=== PATIENT | female | born 1995 | race African-American/Black ===

== ENCOUNTER 2017-08-01 20:26 | Inpatient (IN) | payer OTHER ==
[~2017-08-01] VITALS: Ht 167.6 cm; Wt 54.0 kg
[~2017-08-01 20:26] MED LIST: BIOTIN PO; IRON325 M1 PO; MOTRIN800 MG PO; TUMS500 MG PO; VITAMIN C1000 MG PO
[2017-08-02 09:31] VITALS: BP 134/90
[2017-08-02] MEDS ORDERED: ENDOCET 5-3251 EACH PO (11:22)
[2017-08-02] MEDS ORDERED: IBUPROFEN800 MG PO (11:22)
[2017-08-02 14:59] VITALS: BP 122/79
[2017-08-02 20:22] LABS: BASOPHIL (%) 0.1 % (0-1); EOSINOPHIL (%) 0 % (0-5); HEMATOCRIT 31.6 % (36.0-46.0); IMMATURE GRANULOCYTE (%) 0.3 % (0.0-0.7); LYMPHOCYTE (%) 5.1 % (15-42); LYMPHOCYTE COUNT 0.8 K/uL (1.0-2.8); MCH 31.8 PG (29.0-34.0); MCHC 33.9 G/DL (30.0-36.0); MCV 93.8 FL (83-99); MONOCYTE (%) 2.7 % (3-12); MONOCYTE COUNT 0.4 K/uL (0-0.8); NEUTROPHIL (%) 91.8 % (45-76); PLATELET COUNT 227 K/uL (156-360); RBC DIS.WIDTH-CV 12.3 % (11.8-14.6); RBC DIS.WIDTH-SD 42.3 % (39-53); WHITE BLOOD COUNT 15.2 K/uL (4.1-10.2)
[2017-08-02 20:33] LABS: HEMOGLOBIN 10.7 G/DL (11.9-15.5); RED BLOOD COUNT 3.37 M/uL (3.80-5.20)
[2017-08-02 20:56] VITALS: BP 112/80
[2017-08-02 23:54] VITALS: BP 115/74
[2017-08-03 04:18] VITALS: BP 123/85
[2017-08-03 06:53] LABS: HEMATOCRIT 27.9 % (36.0-46.0); HEMOGLOBIN 9.3 G/DL (11.9-15.5); MCH 31.4 PG (29.0-34.0); MCHC 33.3 G/DL (30.0-36.0); MCV 94.3 FL (83-99); PLATELET COUNT 194 K/uL (156-360); RBC DIS.WIDTH-CV 12.4 % (11.8-14.6); RED BLOOD COUNT 2.96 M/uL (3.80-5.20); WHITE BLOOD COUNT 11.2 K/uL (4.1-10.2)
[2017-08-03 07:09] VITALS: BP 125/69
[2017-08-03 15:45] VITALS: BP 115/74
[2017-08-03 20:26] VITALS: BP 101/59
[2017-08-03 23:54] VITALS: BP 114/63
[2017-08-04 04:19] VITALS: BP 153/82
[2017-08-04 07:45] VITALS: BP 120/74
[2017-08-04 12:05] VITALS: BP 121/71
[2017-08-04] MEDS ORDERED: NEURONTIN300 MG PO (15:16)
== END 2017-08-04 16:26 | disposition home or self-care (01) | DRG 743 ==
LOC: ENRESERV 20:26 → 2EASTP 08-02 08:17 → 2SOUTH 08-02 08:17 → EDSTATUS 08-02 10:47 → SDC 08-02 10:49 → ENRESERV 08-02 10:54 → EDSTATUS 08-02 12:51 → 2SOUTH 08-02 12:54 → ENRESERV 08-02 12:55 → 2EASTP 08-02 14:49
PROVIDERS: Obstetrics & Gynecology Gynecology
PROC: 0UB90ZZ Excision of Uterus, Open Approach (ICD-10-PCS; principal; 2017-08-02)
DX: D25.9 Leiomyoma of uterus, unspecified (principal); N92.0 Excessive and frequent menstruation with regular cycle; N92.3 Ovulation bleeding; R14.1 Gas pain; Z91.040 Latex allergy status
CPT/HCPCS: 36415; 74019; 80053; 84702; 85025; 85027; 86850; 86900; 86901; 86920; 88108; 88305; J0131; J0690; J1100; J1170; J2250; J2270; J2405; J2710; J3010; J7120; Q0175